=== PATIENT | female | born 1930 | race Two or more races ===

== ENCOUNTER 2019-02-28 17:05 | Emergency (ER) | payer OTHER ==
[~2019-02-28] VITALS: Ht 162.6 cm; Wt 81.6 kg
[2019-02-28] MEDS ORDERED: GLIPIZIDE5 MG PO (17:18)
[2019-02-28] MEDS ORDERED: ZOCOR20 MG PO (17:19)
[2019-02-28] MEDS ORDERED: SINGULAIR 10MG10 MG PO (17:19)
[2019-02-28] MEDS ORDERED: PAXIL20 MG PO (17:20)
[2019-02-28] MEDS ORDERED: ASA81 MG PO (17:20)
[2019-02-28] MEDS ORDERED: ALTACE1.25 MG PO (17:21)
[2019-02-28] MEDS ORDERED: LEVO-T25 MCG PO (17:21)
[2019-02-28] MEDS ORDERED: DICLOFENAC SODI50 MG PO (18:41)
== END 2019-02-28 19:07 ==
LOC: ER 17:05
DX: S82.491A Other fracture of shaft of right fibula, initial encounter for closed fracture (principal); S82.61XA Displaced fracture of lateral malleolus of right fibula, initial encounter for closed fracture; S92.911A Unspecified fracture of right toe(s), initial encounter for closed fracture; S93.491A Sprain of other ligament of right ankle, initial encounter; M79.671 Pain in right foot; W01.0XXA Fall on same level from slipping, tripping and stumbling without subsequent striking against object, initial encounter; Y93.89 Activity, other specified; Y92.89 Other specified places as the place of occurrence of the external cause; Y99.8 Other external cause status